=== PATIENT | male | born 1985 | race Caucasian/White ===

== ENCOUNTER → 2019-07-11 08:36 | Outpatient (CLI) | payer SELFPAY ==
--- NOTE | ~2019-07-11 | MR_ITS ---
EXAMINATION: MR knee LT wo con DATE: 07/11/2019 09:28 INDICATION: 5-6 months medial left knee pain TECHNIQUE: Magnetic resonance imaging (MRI) of the left knee was performed without intravenous contra st. Sequences included coronal PD-weighted FSE, coronal PD-weighted FS FSE, sagittal T2-weighted FSE , sagittal PD-weighted FS FSE and axial PD weighted fat saturated FSE. COMPARISON: None. FINDINGS: Medial compartment: Complex tear with vertical parrot beak configuration tear plane beginning at the posterior horn exten ding anteriorly and peripherally into the posterior body as well as a longitudinal oblique tear plane extending to contact the inferior articular surface in the posterior horn. Articular cartilage is no rmal. Lateral compartment: Lateral meniscus is normal. Articular cartilage is normal. Patellofemoral compartment: Articular cartilage is normal. Ligaments and tendons: Anterior and posterior cruciate ligaments are normal. The medial collateral ligament and fibular freeman ateral ligament complex are normal. The extensor mechanism is normal. The visualized medial and later al hamstring tendons as well as the iliotibial band are normal. Fluid: Physiologic amount of fluid in the joint space. No loose osteochondral bodies identified. Osseous/other: Normal marrow signal. No fracture or abnormal marrow replacing process. IMPRESSION: 1. Complex medial meniscal tear. Reviewed, dictated and finalized at location A. [facility]
== END ==
DX: M25.562 Pain in left knee (principal); S83.232A Complex tear of medial meniscus, current injury, left knee, initial encounter; X58.XXXA Exposure to other specified factors, initial encounter
CPT/HCPCS: 73721